=== PATIENT | female | born 1960 | race Two or more races ===

== ENCOUNTER 2025-01-11 14:34 | Emergency (ER) | payer OTHER ==
[~2025-01-11] VITALS: Ht 162.6 cm; Wt 69.9 kg
[2025-01-11] MEDS ORDERED: LISINOPRIL10 MG PO (15:51)
[2025-01-11] MEDS ORDERED: LONITEN2.5 MG PO (15:52)
[2025-01-11] MEDS ORDERED: XIIDRA1 EACH OTIC (15:52)
[2025-01-11] MEDS ORDERED: HYDROCHLOROTHIA25 MG PO (15:52)
[2025-01-11] MEDS ORDERED: SERTRALINE HCL50 MG PO (15:52)
[2025-01-11] MEDS ORDERED: RIVAROXABAN 10 MG TAB PO ONE (19:30)
[2025-01-12] MEDS ORDERED: DICLOFENAC SODI75 MG PO (16:04)
== END 2025-01-11 20:19 | disposition home or self-care (01) ==
LOC: ER 14:34
DX: I10 Essential (primary) hypertension (principal); R60.0 Localized edema

== ENCOUNTER 2025-01-12 08:51 | Emergency (ER) | payer OTHER ==
[~2025-01-12] VITALS: Ht 162.6 cm; Wt 69.9 kg
[~2025-01-12 08:51] MED LIST: HYDROCHLOROTHIA25 MG PO; LISINOPRIL10 MG PO; LONITEN2.5 MG PO; SERTRALINE HCL50 MG PO; XIIDRA1 EACH OTIC
[2025-01-12 10:10] LABS: BASO % 0.7 % (0.1-1.2); EOS # 0.07 (0.04-0.54); EOS % 1.0 % (0.7-7.0); LYMPH # 1.11 (1.18-3.74); LYMPH % 16.5 % (19.3-53.1); MEAN PLATELET VOLUME 9.90 fl (9.4-12.4); MONO # 0.56 (0.24-0.82); MONO % 8.3 % (4.7-12.5); NEUT # 4.92 (1.56-6.13); NEUT % 73.4 % (34.0-71.1); RED CELL DISTRIBUTION WIDTH 12.4 % (11.6-14.4)
[2025-01-12 10:53] LABS: ALT/SGPT 50.0 U/L (12-78); AST/SGOT 33.0 U/L (15-37); BILIRUBIN TOTAL 0.75 mg/dL (0.3-1.2); BUN CREA RATIO 13.0 (7.0-25.0); CREATININE SERUM 0.85 mg/dL (0.55-1.02); GFR 67.12; GLOBULINA 3.5 G/DL (2.4-3.5); GLUCOSE FASTING 94.0 mg/dL (65-100); OSMOLALITY SERUM 280.0 MOSM/KG (275-295)
[2025-01-12] MEDS ORDERED: DICLOFENAC SODI75 MG PO (16:04)
== END 2025-01-12 18:08 | disposition home or self-care (01) ==
LOC: ER 08:56
PROVIDERS: Preventive Medicine Public Health & General Preventive Medicine
DX: M79.605 Pain in left leg (principal); I87.2 Venous insufficiency (chronic) (peripheral); I10 Essential (primary) hypertension